=== PATIENT | female | born 1930 | race Caucasian/White ===

== ENCOUNTER 2016-12-19 14:42 | Emergency (ER) | payer MEDICARE, OTHER ==
[~2016-12-19 14:42] MED LIST: ACET-2404 PO; AMLO-39 PO; ASPI-653 PO; COZ100 PO; LEVO200T PO; LORA-303 PO; VICODIN 5-3251 EACH PO
[2016-12-19 14:56] VITALS: BP 183/49; PULSE 79; RESP 18; O2SAT 98
--- NOTE | 2016-12-19 15:18 | ED.REPORT ---
HPI-Dizziness / Weakness Date of Service Dec 19, 2016 ED Provider: Kj Boyce MD An 86 year old female with a history of hypertension, anxiety, TIA, peripheral vascular disease and spinal stenosis presents to the ED complaining of dizziness. The dizziness occurs in brief episodes that are exacerbated by standing and turning her head, and followed by a feeling of lightheadedness, mild nausea, headache and neck pain. She denies ringing in her ears. The pt has experienced similar spells or dizziness before, but believes that her current dizziness may be related to recently reduced medication doses, her neck pain, or cerumen impaction. Nursing Notes Stated Complaint: DIZZY Chief Complaint: General Complaint Nursing Notes Reviewed: Yes Allergies: Coded Allergies: Cephalosporins (Verified Allergy, Severe, 09/19/12) Hydromorphone (Verified Allergy, Severe, rash, itching, 03/29/09) Oxycodone (Verified Allergy, Severe, rash, itching, 03/29/09) Penicillins (Verified Allergy, Severe, rash, itching, 03/29/09) Sulfa (Sulfonamide Antibiotics) (Verified Allergy, Severe, 09/19/12) codeine (Verified Allergy, Severe, rash, itching, 03/29/09) meperidine (Verified Allergy, Severe, rash, itching, 03/29/09) morphine (Verified Allergy, Severe, rash, itching, 03/29/09) aspirin (Verified Allergy, 02/22/13) iodine (Verified Allergy, 02/22/13) Scheduled ACETAMINOPHEN-Expunged Drug, Do Not Renew! (TYLENOL-Expunged Drug, Do Not Renew! ) 500 Mg Tablet 500 MG PO PRN AmLODIPine-Expunged Drug, Do Not Renew! (AmLODIPine-Expunged Drug, Do Not Renew! ) 5 Mg Tablet 5 MG PO HS HOLD FOR SBP<[] OR HR<[] Aspirin-Expunged Drug, Do Not Renew! (Lo-Dose Aspirin-Expunged Drug, Do Not Renew!) 81 Mg Tablet.dr 81 MG PO DAILY Hydrocod/APAP-Expunged, Do Not Renew! (VICODIN 5/325-Expunged Drug, Do Not Renew ) 1 Each Tablet 1 TAB PO PRN Levothyroxine -Expunged Drug, Do Not Renew! (Levoxyl-Expunged Drug, Do Not Renew !) 200 Mcg Tablet 200 MCG PO AM Lorazepam-Expunged Drug, Do Not Renew! (Lorazepam-Expunged Drug, Do Not Renew!) 1 Mg Tablet 1 MG PO BID Losartan-Expunged Drug, Do Not Renew! (Losartan-Expunged Drug, Do Not Renew!) 100 Mg Tablet 100 MG PO DAILY Meclizine (Bonine) 25 Mg Tab.chew 25 MG PO TID General Time Seen by MD: 15:16 Chief Complaint Dizzy Hx Obtained From: Patient Arrived By: Walk-in Symptom Duration: Intermittent Recent Healthcare: No recent hospitalization, Recent doctor visit Past Medical History Past Medical History spinal stenosis peripheral vascular disease anxiety hypertension TIA Past Surgical History carotid endarterectomy stents left iliac angioplasty Smoking History Current Every Day Smoker Social History Other Social History: Good social support Ambulatory Status Independent Review of Systems Ears / Nose / Throat: Denies: Ear ringing bilateral Respiratory: Denies: Non-productive cough, Shortness of breath Cardiovascular: Denies: Chest pain GI: Reports: Nausea, Denies: Abdominal pain Skin: Denies Rash Neurologic: Reports: Dizziness, Headache, Lightheaded Complete sys rev & neg: except as marked. Musculoskeletal: Reports: Neck pain Physical Exam Initial Vital Signs Vital Signs (First) Date Time Temp Pulse Resp B/P Pulse Ox O2 Delivery O2 Flow Rate FiO2 12/19/16 14:56 36.8 79 18 183/49 98 Room Air Initial VS: Reviewed General/Constitutional: Awake, Alert Head / Eyes: Atraumatic, Normocephalic, PERRL, EOMI, No nystagmus Respiratory / Chest: Atraumatic, Breath sounds NL, Breath sounds = bilat, No respiratory distress Cardiovascular: Heart rate NL, Regular rhythm, No gallop, No murmurs, No rubs bilateral carotid bruits Neurologic: Oriented X3, Speech NL, No motor deficits, No sensory deficits no facial droop or asymmetry ENT: Atraumatic, Airway patent, Mucous membranes moist left-sided cerumen impaction Neck: Atraumatic, Supple, Full range of motion Abdomen: Atraumatic, Soft, Non-tender Back: Atraumatic, Full range of motion Lower Extremity / Pelvis / MS: Atraumatic, Full range of motion Skin: Atraumatic, Color NL, No rash, Warm, Dry Psychiatric: Affect NL, Mood NL Upper Extremity / MS: Atraumatic, Full range of motion Interpretation & Diagnostics Lab Results Interpretation Result Diagram: 12/19/16 1528 12/19/16 1528 Test 12/19/16 15:28 12/19/16 17:45 12/19/16 17:53 White Blood Count 7.8th/mm3 (3.8-10.1) Red Blood Count 4.14mil/mm3 (3.90-5.20) Hemoglobin 13.6g/dL (12.0-15.6) Hematocrit 40.8% (35.0-46.0) Mean Corpuscular Volume 98.6fL (81-100) Mean Corpuscular Hemoglobin 32.9pg (27.0-35.0) Mean Corpuscular Hemoglobin Concent 33.3% (32.0-37.0) Red Cell Distribution Width 13.0% (12.3-15.4) Platelet Count 215bil/L (150-400) Neutrophils (%) (Auto) 62.6% (40-74) Lymphocytes (%) (Auto) 27.0% (14-46) Monocytes (%) (Auto) 5.8% (4-12) Eosinophils (%) (Auto) 4.0% (0-5) Basophils (%) (Auto) 0.5% (0-3) Sodium Level 142mEq/L (134-144) Potassium Level 4.4mEq/L (3.5-5.2) Chloride Level 104mEq/L (97-108) Carbon Dioxide Level 22mmol/L (18-29) Blood Urea Nitrogen 22mg/dL (8-27) Creatinine 0.90mg/dL (0.57-1.00) Estimat Glomerular Filtration Rate 85mL/min (>59) Glucose Level 121mg/dL (60-99) Calcium Level 9.6mg/dL (8.5-10.1) Magnesium Level 2.2mg/dL (1.6-2.6) Total Bilirubin 0.2mg/dL (0.0-1.2) Aspartate Amino Transf (AST/SGOT) 20U/L (0-50) Alanine Aminotransferase (ALT/SGPT) 16U/L (0-32) Alkaline Phosphatase 70U/L (25-165) Troponin T < 0.010ug/L (0.0-0.011) Total Protein 7.0g/dL (6.4-8.4) Albumin 3.7g/dL (3.4-5.0) Thyroid Stimulating Hormone (TSH) 0.605uIU/mL (0.450-4.500) Hold Myles Top Tube Received (Received) Hold Urine Received (Received) Urine Color Yellow (YELLOW) Urine Appearance Clear (CLEAR,HAZY) Urine pH 5.5 (5.0-8.0) Urine Specific B[place] 1.005 (1.003-1.035) Urine Protein Negativemg/dL (NEG,TRACE) Urine Glucose (UA) Negativemg/dL (NEGATIVE) Urine Ketones Negativemg/dL (NEGATIVE) Urine Occult Blood Negative (NEGATIVE) Urine Nitrite Negative (NEGATIVE) Urine Bilirubin Negative (NEGATIVE) Urine Urobilinogen Normalmg/dL (NORMAL) Urine Leukocyte Esterase Negative (NEGATIVE) Urine RBC 0-2/hpf (0-2) Urine WBC 0-5/hpf (0-5) Urine Epithelial Cells None/hpf (NONE-MOD) Urine Crystals None seen (NONE SEEN) Urine Bacteria Few/hpf (NONE-FEW) Urine Hyaline Casts None/lpf (NONE) Urine Granular Casts None seen (NONE SEEN) Urine Waxy Casts None seen (NONE SEEN) Urine Red Blood Cell Casts None seen (NONE SEEN) Urine White Blood Cell Casts None seen (NONE SEEN) Urine Mucus None seen (None Seen) Urine Trichomonas None seen (NONE SEEN) Urine Yeast None (NONE SEEN) Urinalysis Comment None Urine Culture Reflexed Not indicated ECG Interpretation ECG Interpretation: normal sinus rhythm with a rate of 67 Time: 15:00 Interpreted by: ED physician X-Ray Chest Interpretation Chest Xray Interpretation: IMPRESSION: Left lower lobe focal patchy opacity, possibly bronchopneumonia although recommend clinical correlation and followup with two-view chest radiographs in one month after treatment to document resolution and exclude pulmonary nodule. Diffuse scarring Dictated by: Hussein Weaver M.D. on 12/19/2016 at 15:29 Approved by: Hussein Weaver M.D. on 12/19/2016 at 15:32 Interpretation / Wet Read by: Interpret - Radiologist Re-Eval/Medical Decision Med Decision/Clinical Course 86-year-old female with episodic vertigo that occurs primarily when she is upright either seated or standing. Does appear to be related to head movements, she definitely does have complete resolution of her symptoms between episodes. 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 There was a left cerumen impaction which was irrigated without any definite improvement in her symptoms. She was also given meclizine. Unclear how effective that was. Patient appeared well and did not have orthostatic changes of significance on her vital signs although her blood pressure did come up a little bit with standing. Given the above I do not think this is a stroke or orthostatic hypotension. Source of Hx: Old records Re-Evaluation/Progress : Time of Eval: 18:38 Patient Status: Condition improved Re-Evaluation/Progress Note: Pt rechecked, whose condition has improved with medication. The diagnosis and plan for discharge are discussed. The pt understands and agrees with the plan. All questions are addressed at this time. Counseled Regarding: Diagnosis, Lab results, Need for follow-up, When/why to return to ED Patient Discharge & Departure Impression: Primary Impression: Peripheral vertigo involving left ear Disposition: Home Discharge Condition All VS Reviewed: Yes Condition: Stable Patient Instructions: Benign Paroxysmal Positional Vertigo (ED) Additional Instructions: Emergency department evaluation including an echo examination labs and ECG. A cerumen impaction was cleared of the left ear. We started meclizine one every 8 hours as needed for symptoms of vertigo. There does not appear to be a dangerous cause for vertigo today, symptoms of vertigo are related to problems with the balance sebsors in your ear, this should get better with time. Return to ED if you have severe headache, disabling vertigo or frequent vomiting. Continue previous home medications. Follow-up with your primary care doctor next week recheck blood pressure then. Referrals: Oralia Evans MD (PCP) Scribe Attestation Portions of this note were transcribed by Celeste Ramirez. I, Dr. Boyce personally performed the history, physical exam and medical decision-making; I reviewed and confirmed the accuracy of the information in the transcribed note. Signed by: Lane Jang, 12/19/2016 and 1840. Oralia Evans MD, Donald L MD Dec 19, 2016 15:18 CELESTE RAMIREZ Dec 19, 2016 15:27
[2016-12-19 15:32] LABS: BASOPHILS % (AUTO) 0.5 % (0-3); MONOCYTES % (AUTO) 5.8 % (4-12); Mean Corpuscular Hemoglobin 32.9 pg (27.0-35.0); Mean Corpuscular Volume 98.6 fL (81-100); NEUTROPHILS % (AUTO) 62.6 % (40-74); Platelet Count 215 bil/L (150-400)
--- NOTE | 2016-12-19 15:33 | DRSVH ---
PROCEDURE: X-RAY CHEST ONE VIEW, PORTABLE ([id number]) INDICATIONS: palpitations, dizzy TECHNIQUE: One view of the chest was acquired. COMPARISON: [facility], , CHEST 1VW (PORTABLE), 07/30/2006, 21:50. FINDINGS: Surgical changes and devices: None. Lungs and pleura: No pleural effusions or pneumothorax. Diffuse interstitial disease. There is focal patchy opacity in the left lung base Mediastinum: Mediastinal contours appear normal. Heart size is normal. Bones and chest wall: No suspicious bony lesions. Overlying soft tissues appear unremarkable. Bila teral shoulder joint degeneration. IMPRESSION: Left lower lobe focal patchy opacity, possibly bronchopneumonia although recommend clinical correlati on and followup with two-view chest radiographs in one month after treatment to document resolution a nd exclude pulmonary nodule. Diffuse scarring Dictated by: Hussein Weaver M.D. on 12/19/2016 at 15:29 Approved by: Hussein Weaver M.D. on 12/19/2016 at 15:32
[2016-12-19 15:53] LABS: Magnesium 2.2 mg/dL (1.6-2.6)
[2016-12-19 16:04] LABS: TROPONIN T < 0.010 ug/L (0.0-0.011)
[2016-12-19 17:40] VITALS: BP_SYST 149; BP_SYST 164; BP_SYST 189; BP_DIAS 31; BP_DIAS 44; BP_DIAS 61; PULSE 67; RESP 16; O2SAT 95
[2016-12-19 18:05] LABS: APPEARANCE,URINE CLEAR (CLEAR,HAZY); COLOR,URINE YELLOW (YELLOW); OCCULT BLOOD,URINE NEGATIVE (NEGATIVE); PH,URINE 5.5 (5.0-8.0); UROBILINOGEN,URINE NORMAL (NORMAL)
[2016-12-19] MEDS ORDERED: MECL-114 PO (18:50)
[2016-12-19 19:15] VITALS: BP 138/80; PULSE 75; RESP 16; O2SAT 97
== END 2016-12-19 19:15 | disposition home or self-care (01) ==
LOC: SED 14:42
DX: H81.392 Other peripheral vertigo, left ear (principal); I10 Essential (primary) hypertension; F41.9 Anxiety disorder, unspecified; Z86.73 Personal history of transient ischemic attack (TIA), and cerebral infarction without residual deficits; I73.9 Peripheral vascular disease, unspecified; M48.00 Spinal stenosis, site unspecified; Z79.82 Long term (current) use of aspirin; F17.200 Nicotine dependence, unspecified, uncomplicated; Z88.0 Allergy status to penicillin; Z88.2 Allergy status to sulfonamides; Z88.5 Allergy status to narcotic agent; Z88.6 Allergy status to analgesic agent